=== PATIENT | male | born 1960 | race Caucasian/White ===

== ENCOUNTER 2018-09-02 04:22 | Emergency (ER) | payer OTHER, MEDICARE ==
[~2018-09-02] VITALS: Ht 177.8 cm; Wt 90.7 kg
[2018-09-02] MEDS ORDERED: MORPHINE SULFATE 4 MG/ML SYR/VIAL IV ONE ×2 (04:45→06:45)
[2018-09-02] MEDS ORDERED: ONDANSETRON HCL 4 MG/2 ML VIAL IV ONE (04:45)
[2018-09-02] MEDS ORDERED: LORazepam 2MG/ML-1ML VIAL IV ONE (05:00)
[2018-09-02] MEDS ORDERED: SODIUM CHLORIDE 0.9% 1,000 ML IV ONE (09:16)
[2018-09-02 09:45] LABS: Basophils # (auto) 0.1 uL; Basophils % (auto) 0.6 % (0.0-2.0); Eosinophils # (auto) 0.1 uL; Eosinophils % (auto) 0.8 % (0.0-7.0); Hematocrit 41.2 % (41.0-53.0); Hemoglobin 13.6 g/dL (13.5-17.5); Lymphocytes # (auto) 0.9 uL; Lymphocytes % (auto) 11.2 % (10.0-50.0); Mean Corpuscular Hemoglobin 30.1 pg (28.0-32.0); Mean Corpuscular Hgb Conc. 33.1 g/dL (32.0-36.0); Mean Corpuscular Volume 90.9 fL (80.0-100.0); Monocytes # (auto) 0.7 uL; Monocytes % (auto) 8.3 % (0.0-12.0); Neutrophils # (auto) 6.4 uL; Neutrophils % (auto) 79.1 % (37.0-80.0); Nucleated Red Blood Cells % 0.1 %; Platelet Count (auto) 185 10^3/uL (140-450); Red Blood Cells 4.53 10^6/uL (4.5-5.90); White Blood Cell 8.1 10^3/uL (4.4-10.8)
[2018-09-02 10:05] LABS: Alanine Aminotransferase 34 U/L (16-61); Albumin 3.3 g/dL (3.4-5.0); Anion Gap 5 (5-15); Aspartate Aminotransferase 26 U/L (15-37); BUN/Creatinine Ratio 17.1; Blood Urea Nitrogen 12 mg/dL (7-18); Calcium 7.9 mg/dL (8.5-10.1); Carbon Dioxide 26 mmol/L (21-32); Chloride 109 mmol/L (98-107); GFR African American 149 mL/min; GFR Non-African American 123 mL/min; Glucose 139 mg/dL (74-106); Potassium 3.8 mmol/L (3.5-5.1); Sodium 140 mmol/L (136-145)
[2018-09-02 10:09] LABS: INR 0.98 (0.9-1.15); Partial Thromboplastin Time 26.1 sec (23.78-33.04); Prothrombin Time 10.5 sec (9.27-12.13)
[2018-09-02 10:12] LABS: Alkaline Phosphatase 60 U/L (45-117); Bilirubin, Total 0.5 mg/dL (0.2-1.0); Total Protein 6.5 g/dL (6.4-8.2)
[2018-09-02] MEDS: MORPHINE SULFATE 4 MG/ML SYR/VIAL IV SCH ×2 (10:26→13:13)
[2018-09-02 12:59] VITALS: BP 132/93
== END 2018-09-02 13:12 | disposition short-term general hospital (02) ==
LOC: EDBD 04:22 → ER 04:30
DX: S72.141A Displaced intertrochanteric fracture of right femur, initial encounter for closed fracture (principal); E11.9 Type 2 diabetes mellitus without complications; E78.5 Hyperlipidemia, unspecified; I10 Essential (primary) hypertension; W01.0XXA Fall on same level from slipping, tripping and stumbling without subsequent striking against object, initial encounter; Y93.89 Activity, other specified; Y99.8 Other external cause status; Y92.89 Other specified places as the place of occurrence of the external cause
CPT/HCPCS: 36415; 71045; 73502; 73552; 80053; 82962; 83036; 84484; 85025; 85610; 85730; 93005; 96374; 96375; 96376; 99291; J2060; J2270; J2405; J7030

== ENCOUNTER 2025-08-01 01:47 | Inpatient (IN) | payer OTHER, MEDICARE ==
[~2025-08-01] VITALS: Ht 182.9 cm; Wt 82.0 kg
[2025-08-01] MEDS: PANTOPRAZOLE 40 MG/10 ML VIAL INJ IV ONE (02:00)
[2025-08-01] MEDS: ONDANSETRON HCL 4 MG/2 ML VIAL IV ONE (02:00)
[2025-08-01 02:02] VITALS: RESP 16; O2SAT 99
--- NOTE | 2025-08-01 02:05 | ED.PDOC ---
History of Present Illness HPI Comments 65-year-old male who came to ER via EMS for generalized weakness. Per EMS, patient picked up at [facility]. Recent hip surgery. Noted by caregivers with the patient has been acting weak today, and had 3 episodes of reddish brown vomitus. Patient appears confused so this time care, unable to get an information from him. Unsure what his baseline mental status is. Patient was seen and [facility] yesterday. At that time patient reported he has not been taking insulin. He has a history of type 1 diabetes. REVIEW OF SYSTEMS: General: No fever, no chills, or fatigue HEENT: No sore throat, no earache, no congestion, no neck pain. Cardiac: No chest pain. No palpitations. Lungs: No shortness of breath, no cough. GI: (+) nausea, (+) vomiting, no diarrhea, no constipation, no abdominal pain : No dysuria, frequency, or urgency. No hematuria. Musculoskeletal: No joint pain , no joint swelling, no extremity edema. Skin: No rash, no itching. Neuro: No headache, no dizziness, (+) weakness EXAM: General: Awake, alert and confused. No acute distress. Skin: Skin in warm, dry and intact. Appropriate color for ethnicity. HEENT: The head is normocephalic and atraumatic. Conjunctivae are clear without exudates or hemorrhage. Sclera is non-icteric. EOM are intact. No signs of nystagmus. Eyelids are normal in appearance without swelling or lesions. Oral mucosa is pink and moist Neck: The neck is supple with normal range of motion. No JVD. Cardiac: Heart rate and rhythm are normal. No murmurs, gallops, or rubs are auscultated. Respiratory: No signs of respiratory distress. Lung sounds are clear in all lobes bilaterally without rales, rhonchi, or wheezes. Abdominal: Abdomen is soft, non-tender without distention. Bowel sounds are present and normoactive in all four quadrants. Extremities: Upper and lower extremities are atraumatic in appearance without deformity or edema. Neurological: The patient is awake, alert and oriented to person only with normal speech. Speech is clear. There is no facial asymmetry. Psychiatric: Appropriate mood and affect. Good judgement and insight Chief Complaint: General Weakness Time Seen by MD: 02:04 Primary Care Provider: UNKNOWN Reviewed Notes: Publicity Consultant Notes Allergies: Coded Allergies: NO KNOWN ALLERGIES (Unverified , 09/02/18) Information Source: Emergency Med Personnel Mode of Arrival: EMS Past Medical History PAST MEDICAL HISTORY: DM, High Lipids, HTN Surgical History: Pt Confused Surgical History (Other): Hip surgery Family History Family History: Pt Confused Social History Smoker: Pt Confused Alcohol: Pt Confused Drugs: Pt Confused Lives In: Snf Was a procedure done? Was a procedure done?: No Differential Dx Considerations may include: Anemia, electrolyte imbalance, gastritis, dementia, encephalopathy, sepsis, UTI X-Ray, Labs, Meds, VS Vital Signs Date Time Temp Pulse Resp B/P (MAP) Pulse Ox O2 Delivery O2 Flow Rate FiO2 08/01/25 01:47 97.8 96 18 122/74 92 97.8 Lab Test 08/01/25 05:09 08/01/25 04:22 08/01/25 02:07 Range/Units Blood Gas Specimen Type Arterial Blood Gas Sample Site Right radial Blood Gas Patient Temperature 37.0 Arterial Blood Date Drawn [id number] Arterial Blood pH 7.365 7.350-7.450 Arterial Blood Partial Pressure CO2 29.5 L 35.0-48.0 mmHg Arterial Blood Partial Pressure O2 62.7 L 83.0-108.0 mmHg Arterial Blood HCO3 16.5 L 21.0-28.0 mmol/L Arterial Blood Oxygen Saturation 90.6 L 94.0-98.0 % Arterial Blood Base Excess -7.6 L -2.0-3.0 mmol/L Arterial Blood Oxyhemoglobin 89.3 L 94.0-98.0 % Arterial Blood Carboxyhemoglobin 0.9 0.5-1.5 % Arterial Blood Methemoglobin 0.5 0.0-1.5 % Trey Test Yes Blood Gas Total Hemoglobin 12.10 L 13.5-17.5 g/dL Blood Gas Modality Room air FiO2 % 21.0 Urine Color Light-yellow Yellow Urine Clarity Turbid H Clear Urine pH 5.0 5.0-9.0 Urine Specific Bledsoe 1.026 1.001-1.035 Urine Protein 1+ H Negative Urine Ketones 4+ H Negative Urine Blood 1+ H Negative /uL Urine Nitrite Negative Negative Urine Bilirubin Negative Negative Urine Urobilinogen Normal Negative mg/dL Urine Leukocyte Esterase 3+ Negative /uL Urine RBC 41 0 - 3 /hpf Urine Microscopic WBC 250 H 0-3 /HPF Urine Squamous Epithelial Cells None seen <5 /hpf Urine Bacteria None seen None Seen /hpf Urine Mucus Few None Seen Urine Yeast (Budding) Moderate None Seen /hpf Urine Glucose 4+ H Normal mg/dL Urine Opiates Screen Neg NEGATIVE Urine Fentanyl Screen Neg NEGATIVE Urine Barbiturates Screen Neg NEGATIVE Urine Phencyclidine Screen Neg NEGATIVE Urine Amphetamines Screen Neg NEGATIVE Urine Benzodiazepines Screen Neg NEGATIVE Urine Cocaine Screen Neg NEGATIVE Urine Cannabinoids Screen Neg NEGATIVE White Blood Count 9.6 4.4-10.8 10^3/uL Red Blood Count 3.89 L 4.5-5.90 10^6/uL Hemoglobin 11.9 L 13.5-17.5 g/dL Hematocrit 34.5 L 41.0-53.0 % Mean Corpuscular Volume 88.7 80.0-100.0 fL Mean Corpuscular Hemoglobin 30.5 28.0-32.0 pg Mean Corpuscular Hemoglobin Concent 34.4 32.0-36.0 g/dL Red Cell Distribution Width 13.3 11.8-14.3 % Platelet Count 250 140-450 10^3/uL Mean Platelet Volume 8.4 6.9-10.8 fL Neutrophils (%) (Auto) 87.9 H 37.0-80.0 % Lymphocytes (%) (Auto) 5.4 L 10.0-50.0 % Monocytes (%) (Auto) 6.3 0.0-12.0 % Eosinophils (%) (Auto) 0.1 0.0-7.0 % Basophils (%) (Auto) 0.3 0.0-2.0 % Neutrophils # (Auto) 8.4 1.6-8.6 10 ^3/uL Lymphocytes # (Auto) 0.5 0.4-5.4 10 ^3/uL Monocytes # (Auto) 0.6 0-1.3 10 ^3/uL Eosinophils # (Auto) 0 0-0.8 10 ^3/uL Basophils # (Auto) 0 0-0.2 10 ^3/uL Nucleated Red Blood Cells 0.0 % Prothrombin Time 11.3 9.3-11.8 sec Prothrombin Time INR 1.07 0.9-1.15 Sodium Level 139 136-145 mmol/L Potassium Level 5.0 3.5-5.1 mmol/L Chloride Level 101 98-107 mmol/L Carbon Dioxide Level 21 20-31 mmol/L Anion Gap 17 H 5-15 Blood Urea Nitrogen 16 9-23 mg/dL Creatinine 0.95 0.700-1.30 mg/dL Glomerular Filtration Rate Calc 89 >90 mL/min BUN/Creatinine Ratio 16.8 10.0-20.0 Serum Glucose 291 H 74-106 mg/dL Lactic Acid Level 1.7 0.4-2.0 mmol/L Calcium Level 8.7 8.7-10.4 mg/dL Magnesium Level 2.1 1.6-2.6 mg/dL Lipase 21 12-53 U/L Beta-Hydroxybutyric Acid Pending Current Medications Medications (Trade) Dose Ordered Sig/David Route Start Time Stop Time Status Last Admin Ondansetron HCl (Zofran) 4 mg ONCE ONCE IV 08/01/25 02:00 08/01/25 02:01 DC 08/01/25 02:00 Pantoprazole Sodium (Protonix) 40 mg ONCE ONCE IV 08/01/25 02:00 08/01/25 02:01 DC 08/01/25 02:00 EXAM: CT HEAD WITHOUT CONTRAST INDICATION: Altered mental status TECHNIQUE: CT of the head without intravenous contrast. Radiation Dose : 1. Head: CT Dose: CTDI volume is 65.65 mGy. Dose-length product is 1424.88 mGy*cm The dose indicators for CT are the volume Computed Tomography (CT) Dose Index (CTDIvol) and the Dose Length Product (DLP), and are measured in units of mGy and mGy-cm, respectively. These indicators are not patient dose, but values generated from the CT scanner acquisition factors. The report includes radiation exposure data for exposures received during this examination. COMPARISON: None FINDINGS: There is no evidence of acute intracranial hemorrhage, extra-axial collection, mass effect, midline shift, herniation or hydrocephalus. Increased prominence of the ventricles, sulci and cisterns consistent with sequelae of atrophic cortical volume loss. The romero-white differentiation is intact. Moderate diffuse confluent periventricular and subcortical white matter hypoattenuation is nonspecific but may be related to small vessel ischemic disease. The visualized paranasal sinuses and mastoid air cells are clear. The surrounding soft tissues and osseous structures are unremarkable. IMPRESSION: 1. No acute intracranial abnormality. 2. Chronic sequelae of microangiopathy and atrophic cortical volume loss. Radiation optimization: All CT scans at this facility use at least one of these dose optimization techniques: automated exposure control mA and/or kV adjustment per patient size (includes targeted exams where dose is matched to clinical indication) or iterative reconstruction. Exam: CT CT AB PEL WO CON-NO ORAL OR IV History: Nausea, vomiting, upper GI bleed Comparison Study: CT ABD/PEL on DOS: 02/02/24 Technique: Multidetector spiral CT of the abdomen was performed from lung bases to pubic symphysis. Imaging was performed without IV contrast. Axial, coronal and sagittal multiplanar reformats were obtained from the axial data set by the technologist. Radiation Dose : 1. Abdomen/Pelvis: CTDIvol 21.35 mGy, DLP 1261.14 mGy*cm. Findings: Evaluation of solid organs is limited due to lack of intravenous contrast use. Lung Bases: No acute or significant lung base finding. Mild posterior bibasilar atelectasis. Normal heart size. No pleural or pericardial effusion. Liver: The liver is normal in size. No focal lesions. Gallbladder and Biliary Tree: Cholelithiasis and moderate gallbladder distention. Spleen: Unremarkable Pancreas: The pancreas is grossly normal in appearance. Adrenal Glands: 2.0 cm probable right adrenal adenoma. Normal left adrenal gland. Kidneys: Mild bilateral renal atrophy. Kidneys are otherwise grossly normal without calculi or hydronephrosis. Bladder: Grossly unremarkable for degree of distention. Suprapubic Lynch catheter. Bowel: Small sliding-type hiatal hernia. The stomach is grossly normal in appearance. Retained colorectal stool and moderate rectal fecal impaction, maximum transverse diameter 8.0 cm. Small bowel and colon are otherwise normal in caliber and distribution. The appendix is not visualized; however, no secondary findings of acute appendicitis identified. Ascites: Absent Lymphadenopathy: No mesenteric, retroperitoneal or periportal lymphadenopathy. Abdominal Wall and Mesentery: Unremarkable. Vasculature: The visualized abdominal aorta is normal in size and caliber. Atherosclerotic vascular calcification. Evaluation of abdominal and pelvic vessels is limited due to lack of intravenous contrast. Pelvic Organs: Unremarkable. Penile prosthesis. Musculoskeletal: No aggressive focal bony lesions, acute fractures or dislocation. Hardware within the bilateral femoral necks and proximal femora. IMPRESSION: 1. Cholelithiasis and moderate gallbladder distention. 2. Retained colorectal stool and moderate rectal fecal impaction. 3. Small sliding-type hiatal hernia. Radiation optimization: All CT scans at this facility use at least one of these dose optimization techniques: automated exposure control mA and/or kV adjustment per patient size (includes targeted exams where dose is matched to clinical indication) or iterative reconstruction. Time of 1ST Reevaluation: 01:59 Reevaluation 1ST: Unchanged Patient Education/Counseling: Need For Follow Up Family Education/Counseling: No Family Present SEPSIS Sepsis Screen Physician Orders Head Without Contrast (08/01/25 01:57) Ct Ab Pel Wo Con-No Oral Or Iv (08/01/25 01:57) Stool Occult Blood (08/01/25 04:14) Sodium Chloride 0.9% (08/01/25 05:00) Abg W/ Co-Ox (08/01/25 04:57) Sodium Chloride 0.9% (08/01/25 05:00) Beta-Hydroxybutyrate (08/01/25 04:57) Vital Signs Date Time Temp Pulse Resp B/P (MAP) Pulse Ox O2 Delivery O2 Flow Rate FiO2 08/01/25 01:47 97.8 96 18 122/74 92 97.8 Laboratory Tests Test 08/01/25 02:07 Lactic Acid Level 1.7 mmol/L (0.4-2.0) White Blood Count 9.6 10^3/uL (4.4-10.8) Medications Medications Dose Ordered Sig/David Route Start Time Stop Time Status Last Admin Dose Admin Ondansetron HCl 4 mg ONCE ONCE IV 08/01/25 02:00 08/01/25 02:01 DC 08/01/25 02:00 Pantoprazole Sodium 40 mg ONCE ONCE IV 08/01/25 02:00 08/01/25 02:01 DC 08/01/25 02:00 Departure 1 Departure Time of Disposition: 04:13 Impression: Primary Impression: GI bleed Additional Impressions: Altered mental status Anemia Hyperglycemia Type 1 diabetes Disposition: ADMITTED INPATIENT Condition: Stable Comments Discussed with Dr. Beasley with [facility] who authorizes patient to be admitted at this facility. Authorization # [id number] Extensive evaluation was performed in attempt to identify or rule out: (See differential diagnosis section) The following tests were ordered, and results were reviewed by me and discussed with patient: (See diagnostic results section) Additional information was gathered from interviewing the following independent historians: EMS personnel, Dr. Beasley Discussion of management or test interpretation with external physician/other qualified health lawn care technician: Dr. Beasley Decision regarding hospitalization or escalation of hospital level of care: Risk and benefits of admission for further treatment of patient's condition was c onsidered. Due to patient's current clinical condition, high risk of decline and poor outcome if discharged and need for further inpatient management and monitoring, patient will be admitted to the hospital. Discussed with patient. Critical Care Note Critical Care Time?: No Stability Stability form required: No Heart Score Heart Score: Heart Score Response (Comments) Value History N/A 0 EKG N/A 0 Age N/A 0 Risk Factors N/A 0 Troponin N/A 0 Total 0 I personally scribed for LILLIANA MONTEZ MD ([email or web address]) on 08/01/25 at 02:05. Electronically submitted by Timur Aguirre ([employer]). I personally scribed for LILLIANA MONTEZ MD ([email or web address]) on 08/01/25 at 03:45. Electronically submitted by Timur Agurire ([employer]). I personally scribed for LILLIANA MONTEZ MD ([email or web address]) on 08/01/25 at 04:56. Electronically submitted by Timur Aguirre ([employer]). I personally scribed for LILLIANA MONTEZ MD ([email or web address]) on 08/01/25 at 04:57. Electronically submitted by Timur Aguirre ([employer]). LILLIANA MONTEZ MD Aug 01, 2025 02:05
[2025-08-01 02:26] LABS: Hematocrit 34.5 % (41.0-53.0); Hemoglobin 11.9 g/dL (13.5-17.5); Mean Corpuscular Hemoglobin 30.5 pg (28.0-32.0); Mean Corpuscular Volume 88.7 fL (80.0-100.0); Nucleated Red Blood Cells % 0.0 %
[2025-08-01 02:31] LABS: Chloride 101 mmol/L (98-107); Potassium 5.0 mmol/L (3.5-5.1); Sodium 139 mmol/L (136-145)
[2025-08-01 02:32] LABS: Anion Gap 17 (5-15); Calcium 8.7 mg/dL (8.7-10.4); Carbon Dioxide 21 mmol/L (20-31)
[2025-08-01 02:37] LABS: BUN/Creatinine Ratio 16.8 (10.0-20.0); Blood Urea Nitrogen 16 mg/dL (9-23); Lipase 21 U/L (12-53)
[2025-08-01 02:38] LABS: Glucose 291 mg/dL (74-106)
[2025-08-01 02:39] LABS: INR 1.07 (0.9-1.15); Prothrombin Time 11.3 sec (9.3-11.8)
--- NOTE | 2025-08-01 03:35 | DVH ---
EXAM: CT HEAD WITHOUT CONTRAST INDICATION: Altered mental status TECHNIQUE: CT of the head without intravenous contrast. Radiation Dose : 1. Head: CT Dose: CTDI volume is 65.65 mGy. Dose-length product is 1424.88 mGy*cm The dose indicators for CT are the volume Computed Tomography (CT) Dose Index (CTDIvol) and the Dose Length Product (DLP), and are measured in units of mGy and mGy-cm, respectively. These indicators are not patient dose, but values generated from the CT scanner acquisition factors. The report includes radiation exposure data for exposures received during this examination. COMPARISON: None FINDINGS: There is no evidence of acute intracranial hemorrhage, extra-axial collection, mass effect, midline s hift, herniation or hydrocephalus. Increased prominence of the ventricles, sulci and cisterns consistent with sequelae of atrophic corti brian volume loss. The romero-white differentiation is intact. Moderate diffuse confluent periventricular and subcortical white matter hypoattenuation is nonspecifi c but may be related to small vessel ischemic disease. The visualized paranasal sinuses and mastoid air cells are clear. The surrounding soft tissues and osseous structures are unremarkable. IMPRESSION: 1. No acute intracranial abnormality. 2. Chronic sequelae of microangiopathy and atrophic cortical volume loss. Radiation optimization: All CT scans at this facility use at least one of these dose optimization stu hniques: automated exposure control mA and/or kV adjustment per patient size (includes targeted exam s where dose is matched to clinical indication) or iterative reconstruction.
--- NOTE | 2025-08-01 04:04 | DVH ---
Exam: CT CT AB PEL WO CON-NO ORAL OR IV History: Nausea, vomiting, upper GI bleed Comparison Study: CT ABD/PEL on DOS: 02/02/24 Technique: Multidetector spiral CT of the abdomen was performed from lung bases to pubic symphysis. I maging was performed without IV contrast. Axial, coronal and sagittal multiplanar reformats were obta ined from the axial data set by the technologist. Radiation Dose : 1. Abdomen/Pelvis: CTDIvol 21.35 mGy, DLP 1261.14 mGy*cm. Findings: Evaluation of solid organs is limited due to lack of intravenous contrast use. Lung Bases: No acute or significant lung base finding. Mild posterior bibasilar atelectasis. Normal heart size. No pleural or pericardial effusion. Liver: The liver is normal in size. No focal lesions. Gallbladder and Biliary Tree: Cholelithiasis and moderate gallbladder distention. Spleen: Unremarkable Pancreas: The pancreas is grossly normal in appearance. Adrenal Glands: 2.0 cm probable right adrenal adenoma. Normal left adrenal gland. Kidneys: Mild bilateral renal atrophy. Kidneys are otherwise grossly normal without calculi or hydron ephrosis. Bladder: Grossly unremarkable for degree of distention. Suprapubic Lynch catheter. Bowel: Small sliding-type hiatal hernia. The stomach is grossly normal in appearance. Retained colore ctal stool and moderate rectal fecal impaction, maximum transverse diameter 8.0 cm. Small bowel and c olon are otherwise normal in caliber and distribution. The appendix is not visualized; however, no se condary findings of acute appendicitis identified. Ascites: Absent Lymphadenopathy: No mesenteric, retroperitoneal or periportal lymphadenopathy. Abdominal Wall and Mesentery: Unremarkable. Vasculature: The visualized abdominal aorta is normal in size and caliber. Atherosclerotic vascular c alcification. Evaluation of abdominal and pelvic vessels is limited due to lack of intravenous contra st. Pelvic Organs: Unremarkable. Penile prosthesis. Musculoskeletal: No aggressive focal bony lesions, acute fractures or dislocation. Hardware within th e bilateral femoral necks and proximal femora. IMPRESSION: 1. Cholelithiasis and moderate gallbladder distention. 2. Retained colorectal stool and moderate rectal fecal impaction. 3. Small sliding-type hiatal hernia. Radiation optimization: All CT scans at this facility use at least one of these dose optimization stu hniques: automated exposure control mA and/or kV adjustment per patient size (includes targeted exam s where dose is matched to clinical indication) or iterative reconstruction.
[2025-08-01 04:54] LABS: Urine Budding Yeast MODERATE /hpf (None Seen); Urine Protein, UAD 1+ (Negative)
[2025-08-01] MEDS: SODIUM CHLORIDE 0.9% 1,000 ML IV ONE ×2 (05:00)
[2025-08-01 05:14] LABS: Base Excess -7.6 mmol/L (-2.0-3.0)
[2025-08-01 05:21] LABS: Amphetamine Screen, Urine Neg (NEGATIVE); Barbiturate Scree,Urine Neg (NEGATIVE); Benzodiazephine Screen, Urine Neg (NEGATIVE); Cannabinoid Screen, Urine Neg (NEGATIVE); Cocaine Screen, Urine Neg (NEGATIVE); Opiate Scree,Urine Neg (NEGATIVE); Phencyclidine Screen, Urine Neg (NEGATIVE)
--- NOTE | 2025-08-01 05:55 | DVHHP2 ---
History of Present Illness Reason for Visit: Diabetes with ketoacidosis History of Present Illness The patient is a 65-year-old male with past medical history of diabetes mellitus, hyperlipidemia, and hypertension who presented to [facility] ED with complaint of generalized weakness. As reported by EMS, patient was picked up at [facility], recently had hip surgery, noted by caregiver altered mental status, generalized weakness, and reddish brown vomitus. Patient was seen and evaluated in the ED, laboratory data shows WBC 9.6, platelets 250, sodium 139, potassium 5.0, BUN 16, creatinine 0.95, glucose 291, anion gap 17, acetone > 4.500, calcium 8.7, lipase 21, magnesium 2.1, blood pressure 120/74, heart rate 98, temperature 97.8 F, O2 saturation 92% on oxygen. Urinalysis positive for urinary tract infection. Patient was started on insulin drip, please see medication orders section in the computer. On my assessment, patient remains altered, no diaphoresis, currently on oxygen, no vomiting, no fever, no chills. Patient was admitted for further evaluation and medical management. Past Medical History DM, High Lipids, HTN Past Surgical History Unobtainable Family History Reviewed, noncontributory to the management of this case. Past Social History The patient lives at home, no history of smoking, alcohol or illicit drugs abuse on file. Review of Systems Constitutional: Yes: Weakness; No: Fever, Chills, Sweats, Malaise, Other Eyes: No: Pain, Vision change, Conjunctivae inflammation, Eyelid inflammation, Other, Redness ENT: No: Ear pain, Ear discharge, Nose pain, Nose discharge, Nose congestion, Mouth pain, Mouth swelling, Throat pain, Throat swelling, Other Respiratory: Shortness of breath; No: Cough, Dry, SOB with excertion, Wheezing, Hemoptysis, Pleuritic Pain, Sputum, Wheezing, Other Cardiovascular: No: Chest Pain, Palpitations, Orthopnea, Paroxysmal Noc. Dyspnea, Edema, Lt Headedness, Other Gastrointestinal: No: Nausea, Vomiting, Abdominal Pain, Diarrhea, Constipation, Melena, Hematochezia, Other Genitourinary: No Dysuria, No Frequency, No Incontinence, No Hematuria, No Retention; Other (Lynch catheter in place) Musculoskeletal: No: other, neck pain, shoulder pain, arm pain, back pain, hand pain, leg pain, foot pain Skin: No: Rash, Lesions, Jaundice, Bruising, Other Neurological: Confusion; No: Weakness, Numbness, Incoordination, Change in speech, Seizures, Other Allergies: Coded Allergies: NO KNOWN ALLERGIES (Unverified , 09/02/18) Medications Current Medications Medications Dose Ordered Sig/David Route Start Time Stop Time Status Last Admin Dose Admin Sodium Chloride 1,000 ml @ 500 mls/hr Q2H IV 08/01/25 06:00 08/01/25 09:59 UNV Sodium Chloride 1,000 ml @ 250 mls/hr Q4H IV 08/01/25 10:00 08/01/25 11:59 UNV Sodium Chloride 1,000 ml @ 150 mls/hr Q6H40M IV 08/01/25 12:00 UNV Insulin Human (Reg)/Sodium Chloride 100 ml @ 0.5 mls/hr Q24H IV 08/01/25 06:00 UNV Dextrose 50 ml UD PRN IV 08/01/25 06:00 UNV Diagnostic Test (Pha) 1 strip Q90MIN 08/01/25 06:00 UNV Insulin Glargine 15 units DAILY SC 08/02/25 10:00 UNV Exam Vital Signs Vital Signs Date Time Temp Pulse Resp B/P (MAP) Pulse Ox O2 Delivery O2 Flow Rate FiO2 08/01/25 01:47 97.8 96 18 122/74 92 97.8 General Appearance: Alert, Cooperative, No acute distress, Other (Oriented x1) HEENT: Atraumatic, PERRLA, EOMI, Mucous membr. moist/pink Respiratory: Normal air movement Cardiovascular: Regular rate, Normal S1, Normal S2, No murmurs Abdominal: Normal bowel sounds, Soft, No tenderness, No hepatospenomegaly, No masses Extremities: No clubbing, No cyanosis, No edema, Normal pulses, No tenderness/swelling Skin: No rashes, No significant lesion Neuro: Normal tone, Sensation intact, Cranial nerves 3-12 NL, Reflexes 2+, Other (Generalized weakness) Psych/Mental Status: Mood NL, Other (Altered mental status) Labs/Xrays Labs Test 08/01/25 05:09 08/01/25 04:22 08/01/25 02:07 Range/Units Blood Gas Specimen Type Arterial Blood Gas Sample Site Right radial Blood Gas Patient Temperature 37.0 Arterial Blood Date Drawn [id number] Arterial Blood pH 7.365 7.350-7.450 Arterial Blood Partial Pressure CO2 29.5 L 35.0-48.0 mmHg Arterial Blood Partial Pressure O2 62.7 L 83.0-108.0 mmHg Arterial Blood HCO3 16.5 L 21.0-28.0 mmol/L Arterial Blood Oxygen Saturation 90.6 L 94.0-98.0 % Arterial Blood Base Excess -7.6 L -2.0-3.0 mmol/L Arterial Blood Oxyhemoglobin 89.3 L 94.0-98.0 % Arterial Blood Carboxyhemoglobin 0.9 0.5-1.5 % Arterial Blood Methemoglobin 0.5 0.0-1.5 % Trey Test Yes Blood Gas Total Hemoglobin 12.10 L 13.5-17.5 g/dL Blood Gas Modality Room air FiO2 % 21.0 Urine Color Light-yellow Yellow Urine Clarity Turbid H Clear Urine pH 5.0 5.0-9.0 Urine Specific [place] 1.026 1.001-1.035 Urine Protein 1+ H Negative Urine Ketones 4+ H Negative Urine Blood 1+ H Negative /uL Urine Nitrite Negative Negative Urine Bilirubin Negative Negative Urine Urobilinogen Normal Negative mg/dL Urine Leukocyte Esterase 3+ Negative /uL Urine RBC 41 0 - 3 /hpf Urine Microscopic WBC 250 H 0-3 /HPF Urine Squamous Epithelial Cells None seen <5 /hpf Urine Bacteria None seen None Seen /hpf Urine Mucus Few None Seen Urine Yeast (Budding) Moderate None Seen /hpf Urine Glucose 4+ H Normal mg/dL Urine Opiates Screen Neg NEGATIVE Urine Fentanyl Screen Neg NEGATIVE Urine Barbiturates Screen Neg NEGATIVE Urine Phencyclidine Screen Neg NEGATIVE Urine Amphetamines Screen Neg NEGATIVE Urine Benzodiazepines Screen Neg NEGATIVE Urine Cocaine Screen Neg NEGATIVE Urine Cannabinoids Screen Neg NEGATIVE White Blood Count 9.6 4.4-10.8 10^3/uL Red Blood Count 3.89 L 4.5-5.90 10^6/uL Hemoglobin 11.9 L 13.5-17.5 g/dL Hematocrit 34.5 L 41.0-53.0 % Mean Corpuscular Volume 88.7 80.0-100.0 fL Mean Corpuscular Hemoglobin 30.5 28.0-32.0 pg Mean Corpuscular Hemoglobin Concent 34.4 32.0-36.0 g/dL Red Cell Distribution Width 13.3 11.8-14.3 % Platelet Count 250 140-450 10^3/uL Mean Platelet Volume 8.4 6.9-10.8 fL Neutrophils (%) (Auto) 87.9 H 37.0-80.0 % Lymphocytes (%) (Auto) 5.4 L 10.0-50.0 % Monocytes (%) (Auto) 6.3 0.0-12.0 % Eosinophils (%) (Auto) 0.1 0.0-7.0 % Basophils (%) (Auto) 0.3 0.0-2.0 % Neutrophils # (Auto) 8.4 1.6-8.6 10 ^3/uL Lymphocytes # (Auto) 0.5 0.4-5.4 10 ^3/uL Monocytes # (Auto) 0.6 0-1.3 10 ^3/uL Eosinophils # (Auto) 0 0-0.8 10 ^3/uL Basophils # (Auto) 0 0-0.2 10 ^3/uL Nucleated Red Blood Cells 0.0 % Prothrombin Time 11.3 9.3-11.8 sec Prothrombin Time INR 1.07 0.9-1.15 Sodium Level 139 136-145 mmol/L Potassium Level 5.0 3.5-5.1 mmol/L Chloride Level 101 98-107 mmol/L Carbon Dioxide Level 21 20-31 mmol/L Anion Gap 17 H 5-15 Blood Urea Nitrogen 16 9-23 mg/dL Creatinine 0.95 0.700-1.30 mg/dL Glomerular Filtration Rate Calc 89 >90 mL/min BUN/Creatinine Ratio 16.8 10.0-20.0 Serum Glucose 291 H 74-106 mg/dL Lactic Acid Level 1.7 0.4-2.0 mmol/L Calcium Level 8.7 8.7-10.4 mg/dL Magnesium Level 2.1 1.6-2.6 mg/dL Lipase 21 12-53 U/L Beta-Hydroxybutyric Acid > 4.500 H < 0.4 mmol/L PATIENT: SUSAN VALENTE ACCT: [id number] UNIT: [id number] : 1960 LOC: ER ROOM / BED: / AGE / SEX: 65 / M ADM STATUS: REG ER SERVICE 0157 ORDERING PHYSICIAN: LILLIANA MONTEZ MD PROCEDURE(s): ABPL - CT AB PEL WO CON-NO ORAL OR IV REASON: Nausea, vomiting, ?upper GI bleed ORDER NUMBER(s): [id number], ACCESSION NUMBER(s): [id number] Exam: CT CT AB PEL WO CON-NO ORAL OR IV History: Nausea, vomiting, upper GI bleed Comparison Study: CT ABD/PEL on DOS: 02/02/24 Technique: Multidetector spiral CT of the abdomen was performed from lung bases to pubic symphysis. Imaging was performed without IV contrast. Axial, coronal and sagittal multiplanar reformats were obtained from the axial data set by the technologist. Radiation Dose: 1. Abdomen/Pelvis: CTDIvol 21.35 mGy, DLP 1261.14 mGy*cm. Findings: Evaluation of solid organs is limited due to lack of intravenous contrast use. Lung Bases: No acute or significant lung base finding. Mild posterior bibasilar atelectasis. Normal heart size. No pleural or pericardial effusion. Liver: The liver is normal in size. No focal lesions. Gallbladder and Biliary Tree: Cholelithiasis and moderate gallbladder distention. Spleen: Unremarkable Pancreas: The pancreas is grossly normal in appearance. Adrenal Glands: 2.0 cm probable right adrenal adenoma. Normal left adrenal glan d. Kidneys: Mild bilateral renal atrophy. Kidneys are otherwise grossly normal without calculi or hydronephrosis. Bladder: Grossly unremarkable for degree of distention. Suprapubic Lynch catheter. Bowel: Small sliding-type hiatal hernia. The stomach is grossly normal in appearance. Retained colorectal stool and moderate rectal fecal impaction, maximum transverse diameter 8.0 cm. Small bowel and colon are otherwise normal in caliber and distribution. The appendix is not visualized; however, no secondary findings of acute appendicitis identified. Ascites: Absent Lymphadenopathy: No mesenteric, retroperitoneal or periportal lymphadenopathy. Abdominal Wall and Mesentery: Unremarkable. Vasculature: The visualized abdominal aorta is normal in size and caliber. Atherosclerotic vascular calcification. Evaluation of abdominal and pelvic vessels is limited due to lack of intravenous contrast. Pelvic Organs: Unremarkable. Penile prosthesis. Musculoskeletal: No aggressive focal bony lesions, acute fractures or dislo cation. Hardware within the bilateral femoral necks and proximal femora. IMPRESSION: 1. Cholelithiasis and moderate gallbladder distention. 2. Retained colorectal stool and moderate rectal fecal impaction. 3. Small sliding-type hiatal hernia. ORDERING PHYSICIAN: LILLIANA MONTEZ MD PROCEDURE(s): HWOCT - HEAD WITHOUT CONTRAST REASON: Altered mental status ORDER NUMBER(s): [id number], ACCESSION NUMBER(s): [id number] EXAM: CT HEAD WITHOUT CONTRAST INDICATION: Altered mental status TECHNIQUE: CT of the head without intravenous contrast. Radiation Dose: 1. Head: CT Dose: CTDI volume is 65.65 mGy. Dose-length product is 1424.88 mGy*cm The dose indicators for CT are the volume Computed Tomography (CT) Dose Index (CTDIvol) and the Dose Length Product (DLP), and are measured in units of mGy and mGy-cm, respectively. These indicators are not patient dose, but values generated from the CT scanner acquisition factors. The report includes radiation exposure data for exposures received during this examination. COMPARISON: None FINDINGS: There is no evidence of acute intracranial hemorrhage, extra-axial collection, mass effect, midline shift, herniation or hydrocephalus. Increased prominence of the ventricles, sulci and cisterns consistent with sequelae of atrophic cortical volume loss. The romero-white differentiation is intact. Moderate diffuse confluent periventricular and subcortical white matter hypoattenuation is nonspecific but may be related to small vessel ischemic disease. The visualized paranasal sinuses and mastoid air cells are clear. The surrounding soft tissues and osseous structures are unremarkable. IMPRESSION: 1. No acute intracranial abnormality. 2. Chronic sequelae of microangiopathy and atrophic cortical volume loss. SEPSIS Sepsis Screen Date sepsis recognized/suspect: Aug 01, 2025 Time Sepsis recognized/suspect: 0147 Recent Procedure: No On Antibiotic Therapy: No Respiratory Rate >20: No Heart Rate >90: No Temp<36 C (96.8 F) or >38.3 C: No SBP <90 or MAP <65 mmHG: No New Acute Mental Status Change: No Is the patient on CPAP, BIPAP,: No Physician Orders Head Without Contrast (08/01/25 01:57) Ct Ab Pel Wo Con-No Oral Or Iv (08/01/25 01:57) Stool Occult Blood (08/01/25 04:14) Sodium Chloride 0.9% (08/01/25 05:00) Abg W/ Co-Ox (08/01/25 04:57) Sodium Chloride 0.9% (08/01/25 05:00) Insulin Drip Protocol (08/01/25 ) Sodium Chloride 0.9% (08/01/25 06:00) Sodium Chloride 0.9% (08/01/25 10:00) Sodium Chloride 0.9% (08/01/25 12:00) Insulin Drip 100 Unit/100ml (Myxredlin 1 (08/01/25 06:00) Dextrose 50% Syringe (08/01/25 06:00) Glucose Blood (Accu-Chek Comfort Curve T (08/01/25 06:00) Phosphorus (08/01/25 05:51) Magnesium (08/01/25 05:51) Osmolality, Serum (08/01/25 05:51) Basic Metabolic Panel (08/01/25 05:51) Basic Metabolic Panel (08/01/25 11:51) Basic Metabolic Panel (08/01/25 17:51) Basic Metabolic Panel (08/01/25 23:51) Neurological Assessment (08/01/25 05:51) Vs/Hemodynamics .PER UNIT PROTOCOL (08/01/25 05:51) Insulin Lantus (Glargine) (Lantus) (08/01/25 06:00) Insulin Lantus (Glargine) (Lantus) (08/02/25 10:00) Vital Signs Date Time Temp Pulse Resp B/P (MAP) Pulse Ox O2 Delivery O2 Flow Rate FiO2 08/01/25 01:47 97.8 96 18 122/74 92 97.8 Laboratory Tests Test 08/01/25 02:07 Lactic Acid Level 1.7 mmol/L (0.4-2.0) White Blood Count 9.6 10^3/uL (4.4-10.8) Medications Medications Dose Ordered Sig/David Route Start Time Stop Time Status Last Admin Dose Admin Ondansetron HCl 4 mg ONCE ONCE IV 08/01/25 02:00 08/01/25 02:01 DC 08/01/25 02:00 4 MG Pantoprazole Sodium 40 mg ONCE ONCE IV 08/01/25 02:00 08/01/25 02:01 DC 08/01/25 02:00 40 MG Sodium Chloride 1,000 ml @ 1,000 mls/hr Q1H ONCE IV 08/01/25 05:00 08/01/25 05:59 08/01/25 05:00 1,000 MLS/HR Sodium Chloride 1,000 ml @ 1,000 mls/hr Q1H ONCE IV 08/01/25 05:00 08/01/25 05:59 08/01/25 05:00 1,000 MLS/HR Assessment/Plan Assessment/Plan Diabetes with ketoacidosis GI bleed Altered mental status Urinary tract infection Diabetes mellitus with hyperglycemia Generalized weakness Plan 1. Admit to intensive care unit 2. Breathing treatment 3. Pain control management 4. IV antibiotic management 5. Management of fluids and electrolytes 6. Consultation for hospitalist 7. Diagnostic test chest x-ray 8. DVT prophylaxis-on SCDs 9. Repeat labs CBC, CMP in a.m. 10. Continue with current medical management 11. Treatment plan discussed with patient and RN. Patient will need reinfor cement of information given mental status. Plan discussed with: Patient, Other (RN) Problem List: (1) Diabetes with ketoacidosis (2) GI bleed (3) Altered mental status (4) Urinary tract infection (5) Diabetes mellitus with hyperglycemia (6) Generalized weakness Date of Service: Aug 01, 2025 Billing Provider: YOSI RENDON DNP Common Visit Codes: [id number] INP/OBS CARE (HIGH) YOSI RENDON DNP Aug 01, 2025 05:55
[2025-08-01] MEDS ORDERED: SODIUM CHLORIDE 0.9% 1,000 ML IV SCH (06:00)
[2025-08-01] MEDS ORDERED: ACETAMINOPHEN 325 MG TAB PO PRN (06:00)
[2025-08-01] MEDS ORDERED: DEXTROSE (50%) 50ML SYRG IV PRN ×2 (06:00→23:30)
[2025-08-01] MEDS ORDERED: MORPHINE SULFATE INJ 2 MG/ml SYRG IV PRN (06:00)
[2025-08-01] MEDS ORDERED: NITROGLYCERIN 0.4 MG SL TAB SL PRN (06:00)
[2025-08-01] MEDS ORDERED: ONDANSETRON HCL 4 MG/2 ML VIAL IV PRN (06:00)
[2025-08-01 06:37] LABS: Hematocrit 34.0 % (41.0-53.0); Hemoglobin 11.3 g/dL (13.5-17.5); Mean Corpuscular Hemoglobin 30.2 pg (28.0-32.0); Mean Corpuscular Volume 90.5 fL (80.0-100.0); Nucleated Red Blood Cells % 0.0 %
[2025-08-01 06:48] LABS: Alanine Aminotransferase 22 U/L (7-40); Albumin 3.5 g/dL (3.2-4.8); Alkaline Phosphatase 72 U/L (46-116); Anion Gap 20 (5-15); BUN/Creatinine Ratio 24.5 (10.0-20.0); Chloride 100 mmol/L (98-107); Potassium 4.8 mmol/L (3.5-5.1); Sodium 139 mmol/L (136-145); Total Protein 5.9 g/dL (5.7-8.2)
[2025-08-01 07:07] LABS: Bilirubin, Total 1.5 mg/dL (0.2-1.0); Blood Urea Nitrogen 26 mg/dL (9-23); Calcium 8.3 mg/dL (8.7-10.4); Carbon Dioxide 19 mmol/L (20-31); Glucose 332 mg/dL (74-106)
[2025-08-01 08:00] VITALS: PULSE 98; RESP 12; O2SAT 99
[2025-08-01] MEDS: SODIUM CHLORIDE 0.9% 1,000 ML IV SCH ×3 (08:15→16:13)
[2025-08-01] MEDS: INSULIN LANTUS (GLARGINE) 1 /0.01ml (100units/ml) SC ONE (08:22)
[2025-08-01] MEDS: INSULIN DRIP 100 UNIT/100ML 100 ML IV SCH (08:32)
[2025-08-01] MEDS: ACCU-CHEK COMFORT CURVE STRIP VI SCH ×2 (08:33→23:59)
[2025-08-01] MEDS: PANTOPRAZOLE 40 MG/10 ML VIAL INJ IV SCH (10:49)
[2025-08-01] MEDS: HYDROcodone-ACET 5/325MG TAB PO PRN (10:54)
[2025-08-01 12:18] LABS: Potassium 4.2 mmol/L (3.5-5.1); Sodium 140 mmol/L (136-145)
[2025-08-01 12:19] LABS: Anion Gap 14 (5-15)
[2025-08-01 12:23] LABS: Calcium 7.9 mg/dL (8.7-10.4); Carbon Dioxide 18 mmol/L (20-31); Chloride 108 mmol/L (98-107)
[2025-08-01 12:25] LABS: BUN/Creatinine Ratio 23.3 (10.0-20.0); Blood Urea Nitrogen 21 mg/dL (9-23)
[2025-08-01 12:29] LABS: Glucose 219 mg/dL (74-106)
[2025-08-01] MEDS: LORazepam 2MG/ML-1ML VIAL IV PRN (16:50)
[2025-08-01 18:04] LABS: Potassium 4.4 mmol/L (3.5-5.1); Sodium 142 mmol/L (136-145)
[2025-08-01 18:05] LABS: Anion Gap 11 (5-15); Carbon Dioxide 22 mmol/L (20-31)
[2025-08-01 18:10] LABS: BUN/Creatinine Ratio 16.1 (10.0-20.0); Blood Urea Nitrogen 14 mg/dL (9-23)
[2025-08-01 18:20] LABS: Calcium 8.0 mg/dL (8.7-10.4); Chloride 109 mmol/L (98-107); Glucose 187 mg/dL (74-106)
[2025-08-01 20:36] VITALS: RESP 16; O2SAT 100
[2025-08-02 00:08] LABS: Potassium 4.2 mmol/L (3.5-5.1); Sodium 143 mmol/L (136-145)
[2025-08-02 00:09] LABS: Anion Gap 10 (5-15); Carbon Dioxide 24 mmol/L (20-31)
[2025-08-02 00:13] LABS: Calcium 8.0 mg/dL (8.7-10.4); Chloride 109 mmol/L (98-107)
[2025-08-02 00:15] LABS: BUN/Creatinine Ratio 17.9 (10.0-20.0); Blood Urea Nitrogen 14 mg/dL (9-23)
[2025-08-02 00:16] LABS: Glucose 138 mg/dL (74-106)
[2025-08-02] MEDS: InsuLIN REG 1unit/0.01ml Soln (100units/ml) SC SCH (00:17)
[2025-08-02] MEDS: DOCUSATE SOD 100 MG CAP PO PRN (01:50)
[2025-08-02 05:05] LABS: Hematocrit 31.5 % (41.0-53.0); Hemoglobin 10.7 g/dL (13.5-17.5); Mean Corpuscular Hemoglobin 30.3 pg (28.0-32.0); Mean Corpuscular Volume 89.0 fL (80.0-100.0); Nucleated Red Blood Cells % 0.0 %
[2025-08-02 05:21] LABS: Alanine Aminotransferase 22 U/L (7-40); Albumin 3.4 g/dL (3.2-4.8); Alkaline Phosphatase 63 U/L (46-116); Anion Gap 8 (5-15); BUN/Creatinine Ratio 18.9 (10.0-20.0); Blood Urea Nitrogen 14 mg/dL (9-23); Carbon Dioxide 26 mmol/L (20-31); Potassium 3.9 mmol/L (3.5-5.1); Sodium 142 mmol/L (136-145); Total Protein 5.9 g/dL (5.7-8.2)
[2025-08-02 05:22] LABS: Bilirubin, Total 1.2 mg/dL (0.2-1.0)
[2025-08-02 05:25] LABS: Calcium 8.3 mg/dL (8.7-10.4); Chloride 108 mmol/L (98-107); Glucose 164 mg/dL (74-106)
[2025-08-02 08:02] VITALS: PULSE 77; RESP 20; O2SAT 100
[2025-08-02] MEDS: INSULIN LANTUS (GLARGINE) 1 /0.01ml (100units/ml) SC SCH (10:39)
--- NOTE | 2025-08-02 12:49 | DVHPN2 ---
Progress Note Date Seen: Aug 02, 2025 Medical Necessity Reason Pt with a Central, PICC or Fol: Yes The following are medically ne: Martinez Catheter Reason for martinez catheter: Bladder Retention/Obstruc Subjective Patient reports: No new complaints Review of Systems: HEENT:Normal, CVS:Normal, RESPIRATORY:Normal, GI:Normal, :Normal, MSK:Normal, NEURO:Normal Objective vital signs Vital Sign Date Time Temp Pulse Resp B/P (MAP) Pulse Ox O2 Delivery O2 Flow Rate FiO2 08/02/25 12:01 88 18 159/51 (87) 94 08/02/25 08:02 Simple Mask* 6 50 08/02/25 00:18 98.7 98.7 Total Intake and Output 08/01/25 08/01/25 08/02/25 15:00 23:00 07:00 Intake Total 2550 ml 950 ml Output Total 600 ml 350 ml 1000 ml Balance 1950 ml 600 ml -1000 ml medications Current Medications Medications Dose Ordered Sig/David Route Start Time Stop Time Status Last Admin Dose Admin Insulin Glargine 15 units DAILY SC 08/02/25 10:00 08/02/25 10:39 15 UNITS Pantoprazole Sodium 40 mg DAILY IV 08/01/25 10:00 08/02/25 10:38 40 MG Ceftriaxone Sodium 50 ml @ 100 mls/hr DAILY@09 IV 08/02/25 06:00 08/02/25 09:03 100 MLS/HR Acetaminophen/ Hydrocodone Bitart 1 tab Q4HP PRN PO 08/01/25 06:00 08/01/25 10:54 1 TAB Ondansetron HCl 4 mg Q4HP PRN IV 08/01/25 06:00 Docusate Sodium 100 mg BIDPRN PRN PO 08/01/25 06:00 08/02/25 01:50 100 MG Acetaminophen 650 mg Q6HP PRN PO 08/01/25 06:00 Nitroglycerin 0.4 mg Q5MINP PRN SL 08/01/25 06:00 Morphine Sulfate 2 mg Q30M PRN IV 08/01/25 06:00 Lorazepam 0.5 mg Q6HP PRN IV 08/01/25 13:45 08/01/25 23:17 0.5 MG Diagnostic Test (Pha) 1 strip IQ4HR 08/02/25 00:00 08/02/25 12:41 1 STRIP Insulin Human Regular IQ4HR SC 08/02/25 00:00 08/02/25 12:40 3 UNITS Dextrose 50 ml UD PRN IV 08/01/25 23:30 Examination: GENERAL:Normal, HEENT:Normal, NECK:Normal, LUNGS:Normal, CVS:Normal, ABDOMEN:Normal, MSK:Normal, SKIN:Normal, NEURO:Normal, :Normal laboratory and microbiology Laboratory Tests 08/02/25 04:55 Test 08/02/25 04:55 Range/Units Serum Glucose 164 H 74-106 mg/dL Microbiology Date/Time Source Procedure Growth Status 08/01/25 04:22 Voided Urine Urine Culture - Preliminary Resulted Problem List/Assessment/Plan Problem List/Assessment/Plan #1 dka: lantus, ssi #2 uti ? sepsis: iv micafungin, rocephin, change supra pubic catheter #3 encephalopathy- metabolic #4 gallstones #5 s/p left hip surgery #6 hypertension ? emergency #7 anemia Plan discussed with: Patient Critical Care Time (mins): 42 (critical care time 42 mins) Date of Service: Aug 02, 2025 Billing Provider: KALPANA PIZANO MD Common Visit Codes: [id number] CARE 30-74 MIN KALPANA PIZANO MD Aug 02, 2025 12:49
[2025-08-02] MEDS: SODIUM CHLORIDE 0.9% 1,000 ML IV SCH (13:15)
[2025-08-02] MEDS: LISINOPRIL 5 MG TAB PO ONE (13:15)
[2025-08-02] MEDS: MICAFUNGIN SODIUM 100 MG in SODIUM CHL 0.9% 100 ML IV ONE (13:15)
--- NOTE | 2025-08-02 13:22 | DVH ---
CHEST RADIOGRAPH Indication: dka Technique: Single frontal view of the chest was obtained COMPARISON: None FINDINGS: Lines and Tubes: None Lungs: Congestion Pleura: No effusion. No pneumothorax. Cardiomediastinal contours: Unremarkable Bones: Unremarkable IMPRESSION: Increased interstital prominence. This may represent pulmonary vascular congestion and/or viral pneum onia. Clinical correlation advised.
[2025-08-02 19:47] VITALS: PULSE 78; RESP 18; O2SAT 96
[2025-08-03] VITALS (7 sets, daily range): BP systolic 98–151; BP diastolic 56–116; PULSE 74–95; RESP 16–19; TEMP 97.5–98.2; O2SAT 92–100
[2025-08-03] MEDS: hydrALAZINE HCL 20 MG/ML VL IV PRN (00:16)
[2025-08-03] MEDS ORDERED: LISI10TA34 PO (03:53)
[2025-08-03] MEDS ORDERED: PANT40TA2 PO (03:55)
[2025-08-03] MEDS ORDERED: TRAM50TA2 PO (03:55)
[2025-08-03] MEDS ORDERED: MORP15TA PO (03:56)
[2025-08-03] MEDS ORDERED: ASPI1TAB20 PO (03:57)
[2025-08-03] MEDS ORDERED: ATOR40TA52 PO (03:57)
[2025-08-03] MEDS ORDERED: AML5T PO (03:57)
[2025-08-03] MEDS ORDERED: DOCU-94 PO (03:58)
[2025-08-03] MEDS ORDERED: ENOX40IN7 SC (03:59)
[2025-08-03] MEDS ORDERED: BISA10SU45 RE (04:00)
[2025-08-03] MEDS ORDERED: GABA-1250 PO (04:01)
[2025-08-03] MEDS ORDERED: INSU100I70 SC (04:02)
[2025-08-03] MEDS ORDERED: MOMLQ PO (04:04)
[2025-08-03] MEDS ORDERED: METH118C PO (04:05)
[2025-08-03 07:09] LABS: Alanine Aminotransferase 23 U/L (7-40); Alkaline Phosphatase 60 U/L (46-116); Anion Gap 10 (5-15); BUN/Creatinine Ratio 15.9 (10.0-20.0); Blood Urea Nitrogen 10 mg/dL (9-23); Carbon Dioxide 26 mmol/L (20-31); Chloride 105 mmol/L (98-107); Sodium 141 mmol/L (136-145)
[2025-08-03 07:10] LABS: Bilirubin, Total 1.2 mg/dL (0.2-1.0)
[2025-08-03 07:13] LABS: Albumin 3.0 g/dL (3.2-4.8); Calcium 8.0 mg/dL (8.7-10.4); Glucose 147 mg/dL (74-106); Potassium 3.4 mmol/L (3.5-5.1); Total Protein 5.3 g/dL (5.7-8.2)
[2025-08-03 07:14] LABS: Hematocrit 29.9 % (41.0-53.0); Hemoglobin 10.7 g/dL (13.5-17.5); Mean Corpuscular Hemoglobin 31.1 pg (28.0-32.0); Mean Corpuscular Volume 87.3 fL (80.0-100.0); Nucleated Red Blood Cells % 0.1 %
[2025-08-03] MEDS: LISINOPRIL 5 MG TAB PO SCH (09:43)
[2025-08-03] MEDS ORDERED: DEXTROSE (50%) 50ML SYRG IV PRN (10:00)
--- NOTE | 2025-08-03 10:10 | DVHDS2 ---
Discharge Summary Date of Admission Aug 01, 2025 at 05:46 Date of Discharge: Aug 03, 2025 Labs/Diagnostic Data: Laboratory Results Test 08/03/25 08:32 08/03/25 05:24 08/02/25 22:40 08/01/25 05:19 POC Glucose 239 mg/dl (70-106) White Blood Count 6.7 10^3/uL (4.4-10.8) Red Blood Count 3.43 10^6/uL (4.5-5.90) Hemoglobin 10.7 g/dL (13.5-17.5) Hematocrit 29.9 % (41.0-53.0) Mean Corpuscular Volume 87.3 fL (80.0-100.0) Mean Corpuscular Hemoglobin 31.1 pg (28.0-32.0) Mean Corpuscular Hemoglobin Concent 35.7 g/dL (32.0-36.0) Red Cell Distribution Width 13.1 % (11.8-14.3) Platelet Count 246 10^3/uL (140-450) Mean Platelet Volume 8.0 fL (6.9-10.8) Neutrophils (%) (Auto) 70.4 % (37.0-80.0) Lymphocytes (%) (Auto) 15.5 % (10.0-50.0) Monocytes (%) (Auto) 9.6 % (0.0-12.0) Eosinophils (%) (Auto) 3.9 % (0.0-7.0) Basophils (%) (Auto) 0.6 % (0.0-2.0) Neutrophils # (Auto) 4.7 10 ^3/uL (1.6-8.6) Lymphocytes # (Auto) 1.0 10 ^3/uL (0.4-5.4) Monocytes # (Auto) 0.6 10 ^3/uL (0-1.3) Eosinophils # (Auto) 0.3 10 ^3/uL (0-0.8) Basophils # (Auto) 0 10 ^3/uL (0-0.2) Nucleated Red Blood Cells 0.1 % Sodium Level 141 mmol/L (136-145) Potassium Level 3.4 mmol/L (3.5-5.1) Chloride Level 105 mmol/L (98-107) Carbon Dioxide Level 26 mmol/L (20-31) Anion Gap 10 (5-15) Blood Urea Nitrogen 10 mg/dL (9-23) Creatinine 0.63 mg/dL (0.700-1.30) Glomerular Filtration Rate Calc 106 mL/min (>90) BUN/Creatinine Ratio 15.9 (10.0-20.0) Serum Glucose 147 mg/dL (74-106) Calcium Level 8.0 mg/dL (8.7-10.4) Total Bilirubin 1.2 mg/dL (0.2-1.0) Aspartate Amino Transferase (AST) 37 U/L (13-40) Alanine Aminotransferase (ALT) 23 U/L (7-40) Alkaline Phosphatase 60 U/L (46-116) Total Protein 5.3 g/dL (5.7-8.2) Albumin 3.0 g/dL (3.2-4.8) Stool Occult Blood Negative (Negative) Stool Occult Blood Sample #3 (Negative) Serum Osmolality 309 mOsm/kg (278-298) Phosphorus Level 4.2 mg/dL (2.4-5.1) Test 08/01/25 05:09 08/01/25 04:22 08/01/25 02:07 Blood Gas Specimen Type Arterial Blood Gas Sample Site Right radial Blood Gas Patient Temperature 37.0 Arterial Blood Date Drawn [id number] Arterial Blood pH 7.365 (7.350-7.450) Arterial Blood Partial Pressure CO2 29.5 mmHg (35.0-48.0) Arterial Blood Partial Pressure O2 62.7 mmHg (83.0-108.0) Arterial Blood HCO3 16.5 mmol/L (21.0-28.0) Arterial Blood Oxygen Saturation 90.6 % (94.0-98.0) Arterial Blood Base Excess -7.6 mmol/L (-2.0-3.0) Arterial Blood Oxyhemoglobin 89.3 % (94.0-98.0) Arterial Blood Carboxyhemoglobin 0.9 % (0.5-1.5) Arterial Blood Methemoglobin 0.5 % (0.0-1.5) Trey Test Yes Blood Gas Total Hemoglobin 12.10 g/dL (13.5-17.5) Blood Gas Modality Room air FiO2 % 21.0 Urine Color Light-yellow (Yellow) Urine Clarity Turbid (Clear) Urine pH 5.0 (5.0-9.0) Urine Specific [place] 1.026 (1.001-1.035) Urine Protein 1+ (Negative) Urine Ketones 4+ (Negative) Urine Blood 1+ /uL (Negative) Urine Nitrite Negative (Negative) Urine Bilirubin Negative (Negative) Urine Urobilinogen Normal mg/dL (Negative) Urine Leukocyte Esterase 3+ /uL (Negative) Urine RBC 41 /hpf (0 - 3) Urine Microscopic WBC 250 /HPF (0-3) Urine Squamous Epithelial Cells None seen /hpf (<5) Urine Bacteria None seen /hpf (None Seen) Urine Mucus Few (None Seen) Urine Yeast (Budding) Moderate /hpf (None Seen) Urine Glucose 4+ mg/dL (Normal) Urine Opiates Screen Neg (NEGATIVE) Urine Fentanyl Screen Neg (NEGATIVE) Urine Barbiturates Screen Neg (NEGATIVE) Urine Phencyclidine Screen Neg (NEGATIVE) Urine Amphetamines Screen Neg (NEGATIVE) Urine Benzodiazepines Screen Neg (NEGATIVE) Urine Cocaine Screen Neg (NEGATIVE) Urine Cannabinoids Screen Neg (NEGATIVE) Prothrombin Time 11.3 sec (9.3-11.8) Prothrombin Time INR 1.07 (0.9-1.15) Lactic Acid Level 1.7 mmol/L (0.4-2.0) Magnesium Level 2.1 mg/dL (1.6-2.6) Lipase 21 U/L (12-53) Beta-Hydroxybutyric Acid > 4.500 mmol/L (< 0.4) Other Laboratory Tests 08/03/25 05:24 Brief Hx & Hospital Course: SEE DICTATED NOTE Condition at Discharge: Fair Final Diagnosis/Problems List DKA Discharge Disposition: Acute Care Facility Discharge Instruct/Medications Diet: Consistent carbohydrate Activity: No Restrictions, As Tolerated Follow Up/Referral: FU WITH [place] Medications: PER JAN Scheduled Amlodipine Besylate (Norvasc Tablet), 1 TAB PO DAILY, (Reported) Aspirin (Aspir-81), 1 TAB PO DAILY, (Reported) Atorvastatin Calcium (Atorvastatin Calcium), 1 TAB PO QPM, (Reported) Bisacodyl (Dulcolax), 10 MG RE DAILYPRN, (Reported) Docusate Sodium (Colace), 100 MG PO BIDPRN, (Reported) Enoxaparin Sodium (Enoxaparin Sodium), 40 MG SC DAILY, (Reported) Gabapentin (Gabapentin), 300 MG PO BID, (Reported) Insulin Glargine-Yfgn (Insulin Glargine), 40 UNIT SC DAILY, (Reported) Lisinopril (Lisinopril), 10 MG PO DAILY, (Reported) Plswdxppzuh-Itsxu-Rwsjowgvw Bl (Uribel), 1 CAP PO BID, (Reported) Morphine Sulfate (Morphine Sulfate), 1 TAB PO Q6HP, (Reported) Pantoprazole Sodium Sesquihydr (Protonix), 40 MG PO BID, (Reported) Scheduled PRN Magnesium Hydroxide (Milk Of Magnesia Oral Suspension), 30 ML PO DAILYPRN PRN for FOR CONSTIPATION, (Reported) Tramadol Hcl (Tramadol Hcl), 50 MG PO Q6HP PRN for MODERATE PAIN (4-6 PAIN SCALE), (Reported) Discharge Statement: "Patient was advised to return to the ER or call 911 if any headaches, dizziness, shortness of breath, chest pain, abdominal pain, bleeding, fevers, or worsening of medical condition. Patient was counseled about treatment plan, medications, possible side effects, patientverbalized understanding. All questions were answered to the best of my ability. This discharge took greater then 30 minutes in planning, reviewing documentation, counseling the patient, and discussing with other team members." ASSESSMENT ASSESSMENT Assessment DKA Date of Service: Aug 03, 2025 Billing Provider: KALPANA PIZANO MD Common Visit Codes: [id number] DISCH DAY >30min KALPANA PIZANO MD Aug 03, 2025 10:10
--- NOTE | 2025-08-03 10:32 | DVHDS ---
DATE OF DISCHARGE: 08/03/2025 HISTORY OF PRESENT ILLNESS: The patient is a 65-year-old gentleman who was admitted with complaints of generalized weakness and came from a senior living facility. The patient has recent left hip surgery and has diabetes, hypertension, hyperlipidemia, as well as a suprapubic catheter. HOSPITAL COURSE: The patient was noted to be in diabetic ketoacidosis. The patient was placed on intravenous fluids along with antibiotics. The patient had evidence of UTI. Urine culture grew presumptive Anita albicans. The patient's stool was negative for occult blood. The patient had a CT of the abdomen and pelvis that showed evidence of cholelithiasis with hiatal hernia. The patient had a head CT that showed chronic changes. The patient's chest x-ray showed increased interstitial prominence. The patient will now be transferred to [place] for further management. FINAL DIAGNOSES: * Diabetic ketoacidosis. * UTI with likely sepsis. * Encephalopathy metabolic. * Gallstones. * Hypertension, questionable emergency. * Anemia. * Status post left hip surgery. Also state that the patient's blood pressure at the time of admission was 185/143. Time spent in discharge planning and review of plan with the patient and nursing and paperwork was 39 minutes. MD BIJAN Rodriguez/DENYS TID: [id number] RECEIPT: [id number]
[2025-08-03] MEDS: InsuLIN REG 1unit/0.01ml Soln (100units/ml) SC SCH (11:57)
[2025-08-03] MEDS: POTASSIUM CHL 20 Meq TABLET PO ONE (11:58)
[2025-08-03] MEDS: MICAFUNGIN SODIUM 100 MG in SODIUM CHL 0.9% 100 ML IV SCH (11:59)
[2025-08-03] MEDS: ACCU-CHEK COMFORT CURVE STRIP VI SCH (11:59)
[2025-08-03] MEDS ORDERED: InsuLIN REG 1unit/0.01ml Soln (100units/ml) SC SCH (22:00)
== END 2025-08-03 20:17 | disposition short-term general hospital (02) | DRG 871 ==
LOC: EDUNIT# 01:47 → EDBD 01:47 → ER 01:47 → OVERFLOW 05:46 → TELE-CENTR 08-02 22:47
PROVIDERS: ADMIT Internal Medicine; ATTEND Internal Medicine
PROC: 05HC33Z Insertion of Infusion Device into Left Basilic Vein, Percutaneous Approach (ICD-10-PCS; principal; 2025-08-03)
PROC: B54NZZA Ultrasonography of Left Upper Extremity Veins, Guidance (ICD-10-PCS; 2025-08-03)
DX: A41.9 Sepsis, unspecified organism (principal); E10.10 Type 1 diabetes mellitus with ketoacidosis without coma; G93.41 Metabolic encephalopathy; N39.0 Urinary tract infection, site not specified; K92.2 Gastrointestinal hemorrhage, unspecified; I10 Essential (primary) hypertension; K80.20 Calculus of gallbladder without cholecystitis without obstruction; D64.9 Anemia, unspecified; E78.5 Hyperlipidemia, unspecified; K44.9 Diaphragmatic hernia without obstruction or gangrene; Z79.899 Other long term (current) drug therapy
CPT/HCPCS: 36415; 36600; 70450; 71045; 74176; 80048; 80053; 80307; 81001; 82010; 82270; 82805; 82962; 83605; 83690; 83735; 83930; 84100; 85025; 85610; 87086; 87088; 96365; 96375; 97163; G0378; J1815; J2248; J2405; J2470